=== PATIENT | female | born 1995 | race Hispanic/Latino ===

== ENCOUNTER 2025-01-11 13:03 | Emergency (ER) | payer BC ==
[~2025-01-11] VITALS: Ht 165.1 cm; Wt 60.1 kg
[2025-01-11 13:08] VITALS: TEMP 98.3
[2025-01-11 13:45] VITALS: PULSE 90; RESP 17; O2SAT 99
== END 2025-01-11 13:48 | disposition home or self-care (01) ==
LOC: FSED 13:09
DX: R07.89 Other chest pain (principal); Z86.011 Personal history of benign neoplasm of the brain
CPT/HCPCS: 93005; 99284